=== PATIENT | female | born 1990 | race Caucasian/White ===

== ENCOUNTER 2021-11-16 20:53 | Inpatient (IN) | payer MEDICAID, SELFPAY ==
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
[2021-11-16 21:01] VITALS: BP 117/62; PULSE 71; RESP 18; TEMP 36.6; O2SAT 99; BMI 21.7
[2021-11-16 21:24] LABS: Appearance Urine HAZY; Color Urine YELLOW; Glucose Urine UA NEG (NEG); Leukocyte Esterase Urine NEG (NEG); Nitrite Urine NEG (NEG); Specific Gravity - Urine >= 1.030 (1.005-1.025); Urine Blood NEG (NEG); Urine Ketones NEG (NEG); Urine Protein NEG (NEG-TRACE)
[2021-11-16 21:26] LABS: UPreg QC Valid YES; Urine Pregnancy NEGATIVE (NEGATIVE)
[2021-11-16 21:35] LABS: Basophils Absolute Auto 0.1 X10*3/uL (0.0-0.2); Basophils Percent Auto 0.6 % (0-2); Eosinophils Absolute Auto 0.1 X10*3/uL (0.0-0.4); Eosinophils Percent Auto 0.6 % (0-4); Hemoglobin 11.9 g/dl (12.0-16.0); Imm Gran Abs Auto 0.02 X10*3/uL (0.00-0.03); Imm Gran Pct Auto 0.3 % (0.0-0.4); Lymphocytes Absolute Auto 1.5 X10*3/uL (1.2-4.9); Lymphocytes Percent Auto 19.5 % (20-40); MANUAL DIFF FLAG NO; Mean Corpuscular HGB Conc 33.1 g/dl (31.0-35.0); Mean Corpuscular Hemoglobin 28.7 pg (27.0-33.0); Mean Platelet Volume 10.6 fL (9.4-12.3); Monocytes Absolute Auto 0.7 X10*3/uL (0.1-1.2); Monocytes Percent Auto 8.5 % (2-11); Neutrophils Absolute Auto 5.5 x10*3/uL (2.0-8.3); Neutrophils Percent Auto 70.5 % (45-73); Platelet Count 234 X10*3/uL (160-400); Red Blood Count 4.14 X10*6/uL (4.20-5.50); Red Cell Distribution Width 12.9 % (11.0-16.0); White Blood Count 7.8 X10*3/uL (4.8-10.8)
[2021-11-16 21:38] LABS: COVID-19 Test Negative (Negative)
[2021-11-16 21:47] LABS: Amphetamine Screen Urine Not Detected (Not Detect); Barbiturates, Urine Not Detected (Not Detect); Benzodiazepines Screen Urine Not Detected (Not Detect); Cannabinoid Screen Urine POSITIVE (Not Detect); Cocaine Screen Urine Not Detected (Not Detect); Fentanyl, urine Not Detected (Not Detect); Opiate Screen Urine Not Detected (Not Detect); Phencyclidine Screen Urine Not Detected (Not Detect)
[2021-11-16 21:57] LABS: Ethanol < 10 mg/dL
[2021-11-16 21:59] LABS: Anion Gap 12 (12-20); Blood Urea Nitrogen 11 mg/dL (9-16); Calcium 9.5 mg/dL (8.4-10.2); Carbon Dioxide 27 mmol/L (22-29); Chloride 106 mmol/L (96-108); Creatinine Clr Calc Pharmacy 76.2; Estimated Glomerular Filt Rate > 60; Glucose Random 97 mg/dL (60-115); Potassium 4.1 mmol/L (3.3-5.1); Sodium 141 mmol/L (135-145)
--- NOTE | 2021-11-17 | ECG_ITS ---
Test Reason : MEDICAL CLEARANCE Blood Pressure : / mmHG Vent. Rate : 049 BPM Atrial Rate : 049 BPM P-R Int : 132 ms QRS Dur : 084 ms QT Int : 426 ms P-R-T Axes : 057 067 046 degrees QTc Int : 384 ms Sinus bradycardia Otherwise normal ECG No previous ECGs available Referred By: Apryl Nicholas Electronically Signed By:ÁNGEL OMALLEY
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
[2021-11-17 05:26] VITALS: BP 104/67; PULSE 47; RESP 15; TEMP 36.6; O2SAT 99
--- NOTE | 2021-11-17 06:44 | PC.NURSE ---
Patient slept through the night, no distress observed/reported, currently not on any medication, VSS, Behavior calm, quiet, and pleasant. disposition per [facility] is section 12 inpatient bed search from community, will continue to monitor.
--- NOTE | 2021-11-17 07:00 | PC.NURSE ---
patient appears to remain asleep at present respirations are even and unlabored patient appears in no distress
[2021-11-17 10:07] VITALS: BP 112/73; PULSE 50; RESP 16; TEMP 36.8; O2SAT 100
[2021-11-17 19:00] VITALS: BP 131/86; PULSE 61; TEMP 36.4
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
--- NOTE | 2021-11-18 01:14 | PC.ADMIT ---
Pt declined PRN nicotine replacement therapy and flu vaccine during admission.
[2021-11-18 06:00] VITALS: BP 110/72; PULSE 64; RESP 16; TEMP 36.5; O2SAT 100
[2021-11-18 09:09] LABS: Estimated Average Glucose 108 mg/dL; Hemoglobin A1c % 5.4 %
[2021-11-18 09:26] LABS: Cholesterol 180 mg/dL; HDL Cholesterol 50 mg/dL; LDL Cholesterol Calculated 112 mg/dl; Magnesium 2.3 mg/dL (1.6-2.6); Triglycerides 92 mg/dL
[2021-11-18 09:46] LABS: Free T4 (Free Thyroxine) 1.15 ng/dL (0.71-1.85); Thyroid Stimulating Hormone 1.22 uIU/mL (0.32-4.0)
[2021-11-18 09:56] LABS: Folate 9.8 ng/mL (> or = 4.0); Vitamin B12 439 pg/mL (200-900)
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
[2021-11-18] MEDS: Acetaminophen 325 MG TABLET 650 MG PO ×2 (16:03→21:31)
[2021-11-18 16:18] VITALS: BMI 19.4
[2021-11-18 16:40] VITALS: BP 110/62; PULSE 58; TEMP 36.6
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
[2021-11-19 17:17] VITALS: BP 128/84; PULSE 62; RESP 20; TEMP 36.4; O2SAT 99
[2021-11-20 08:55] VITALS: BP 116/80; PULSE 87; RESP 14; TEMP 36.7; O2SAT 96
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
[2021-11-20 19:03] VITALS: BP 120/86; PULSE 66; RESP 16; TEMP 36.6; O2SAT 97
[2021-11-21 06:00] VITALS: BP 121/79; PULSE 84; RESP 16; TEMP 36.4; O2SAT 100
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
== END 2021-11-21 14:53 | disposition other institution (70) | DRG 750 ==
LOC: HO.ED 11-17 12:17 → HO.PM5 11-17 16:47
PROVIDERS: Physician Assistant; Registered Nurse; Admitting Provider Psychiatry & Neurology Psychiatry; Emergency Provider Internal Medicine; Visit Provider Psychiatry & Neurology Psychiatry
DX: F25.0 Schizoaffective disorder, bipolar type (principal); F17.210 Nicotine dependence, cigarettes, uncomplicated; F43.12 Post-traumatic stress disorder, chronic; Z71.6 Tobacco abuse counseling; Z20.822 Contact with and (suspected) exposure to COVID-19
CPT/HCPCS: 36415; 70450; 70486; 72125; 73060; 80048; 80061; 80307; 81003; 81025; 82077; 82607; 82746; 83036; 83735; 84439; 84443; 85025; 87635; 93005; 99285

== ENCOUNTER 2022-05-01 19:14 | Inpatient (IN) | payer MEDICAID, OTHER, SELFPAY ==
[2022-05-01 19:23] VITALS: BP 137/98; PULSE 118; O2SAT 94
--- NOTE | 2022-05-01 19:27 | PC.NURSE ---
direct to Geovany from EMS stretcher
[2022-05-01 19:30] VITALS: BP 111/79; PULSE 95; RESP 16; TEMP 36.9; O2SAT 96; BMI 22.1
--- NOTE | 2022-05-01 19:49 | MHC.CARE ---
Care Team completed [facility] smart sheet.
[2022-05-01 19:58] LABS: MANUAL DIFF FLAG NO
[2022-05-01 20:00] LABS: Appearance Urine Clear; Color Urine Yellow; Glucose Urine UA Negative (Negative); Leukocyte Esterase Urine Trace (Negative); Nitrite Urine Negative (Negative); PH 5.5 (5.0-9.0); Specific Gravity - Urine <= 1.005 (1.005-1.025); UMIC TRIGGER UA YES; Urine Blood Negative (Negative); Urine Ketones Negative (Negative); Urine Protein Negative (Neg-Trace)
[2022-05-01 20:00] LABS: Basophils Absolute Auto 0.1 X10*3/uL (0.0-0.2); Basophils Percent Auto 0.6 % (0-2); Eosinophils Absolute Auto 0.2 X10*3/uL (0.0-0.4); Eosinophils Percent Auto 1.9 % (0-4); Hematocrit 41.4 % (37.0-47.0); Hemoglobin 14.3 g/dl (12.0-16.0); Imm Gran Abs Auto 0.03 X10*3/uL (0.00-0.03); Imm Gran Pct Auto 0.3 % (0.0-0.4); Lymphocytes Percent Auto 19.2 % (20-40); Mean Corpuscular HGB Conc 34.5 g/dl (31.0-35.0); Mean Corpuscular Hemoglobin 28.9 pg (27.0-33.0); Mean Corpuscular Volume 83.8 fL (80.0-98.0); Mean Platelet Volume 9.8 fL (9.4-12.3); Monocytes Absolute Auto 0.8 X10*3/uL (0.1-1.2); Monocytes Percent Auto 7.6 % (2-11); Neutrophils Absolute Auto 7.4 x10*3/uL (2.0-8.3); Neutrophils Percent Auto 70.4 % (45-73); Platelet Count 278 X10*3/uL (160-400); Red Blood Count 4.94 X10*6/uL (4.20-5.50); Red Cell Distribution Width 13.4 % (11.0-16.0); White Blood Count 10.5 X10*3/uL (4.8-10.8)
[2022-05-01 20:03] LABS: UPreg QC Valid YES; Urine Pregnancy NEGATIVE (NEGATIVE)
[2022-05-01 20:05] LABS: Bacteria Urine 3+ (None Seen); Hyaline Casts Urine 0-2 /LPF (0-2); RBC Urine 0-2 /HPF (0-2); WBC Urine 0-5 /HPF (0-5)
[2022-05-01 20:11] LABS: Amphetamine Screen Urine Not Detected (Not Detect); Barbiturates, Urine Not Detected (Not Detect); Benzodiazepines Screen Urine Not Detected (Not Detect); Cannabinoid Screen Urine POSITIVE (Not Detect); Cocaine Screen Urine Not Detected (Not Detect); Fentanyl, urine Not Detected (Not Detect); Opiate Screen Urine Not Detected (Not Detect); Phencyclidine Screen Urine Not Detected (Not Detect)
[2022-05-01 20:13] LABS: COVID-19 Test Negative (Negative); IDNOW Serial# 55D5AD1C
[2022-05-01 20:16] LABS: Ethanol 107 mg/dL
[2022-05-01 20:23] LABS: Alanine Aminotransferase 23 U/L (0-31); Alkaline Phosphatase 59 U/L (39-117); Anion Gap 17 (12-20); Aspartate Amino Transferase 32 U/L (5-31); Bilirubin Total < 0.2 mg/dL (0.0-1.0); Blood Urea Nitrogen 14 mg/dL (9-16); Calcium 9.9 mg/dL (8.4-10.2); Carbon Dioxide 24 mmol/L (22-29); Chloride 106 mmol/L (96-108); Creatinine Clr Calc Pharmacy 66.9; Estimated Glomerular Filt Rate > 60; Glucose Random 97 mg/dL (60-115); Potassium 4.8 mmol/L (3.3-5.1); Sodium 142 mmol/L (135-145); Total Protein 8.1 g/dL (6.5-8.0)
[2022-05-02 00:06] VITALS: BP 113/52; PULSE 78; RESP 17; TEMP 36.2; O2SAT 95
--- NOTE | 2022-05-02 00:59 | ED.PSYCH ---
HPI - Psych General Chief Complaint: Psychiatric Symptoms Stated Complaint: SEC 12 CRISIS Time Seen by Provider: 05/01/22 19:29 Source: patient and EMS Mode of arrival: EMS Limitations: other History of Present Illness HPI Narrative: Patient comes to the emergency room complaining of hallucinations. Patient states that Del the evil clown tila's her. Patient ran into her neighbor's yd screaming. Seems that patient has been seen by [facility] 3 times today. Each time, patient has worsening symptoms. Patient is on a Section 12, denies alcohol use. Patient states that she is in a lot of emotional pain. Patient states that she has not had taking any medications. Reviewing patient's notes, patient was discharged on November 21, per her request, she was not started on medications Related Data Allergies Allergy/AdvReac Type Severity Reaction Status Date / Time No Known Allergies Allergy Verified 05/01/22 19:35 Review of Systems Review of Systems: Constitutional : No Weight loss, No Fever, No Chills, No Night Sweats, No Fatigue, No Malaise ENT/Mouth : No Hearing loss, No Ear Pain, No Nasal Congestion, No Sinus Pain, No Hoarseness, No sore throat, No Rhinorrhea, No Swallowing Difficulty Eyes: No Eye Pain, No Swelling, No Redness, No Foreign Body, No Discharge, No Vision Changes Cardiovascular : No Chest Pain, No SOB, No Dyspnea on Exertion, No Orthopnea, No Edema, No Palpitations Respiratory : No Cough, No Sputum, No Wheezing, No Smoke Exposure, No Dyspnea Gastrointestinal : No Nausea, No Vomiting, No Diarrhea, No Constipation, No abdominal Pain, No Hematochezia, No Melena Genitourinary : no irregular bleeding, No Dysuria, No Urinary Frequency, No Hematuria, No Urinary Incontinence, No Urgency, No Flank Pain, No Urinary Flow Changes, No Hesitancy Musculoskeletal : No joint pain, No Myalgias, No Joint Swelling Skin : No Skin Lesions, No rash Neuro : No Weakness, No Numbness, No Paresthesias, No Loss of Consciousness, No Dizziness, No Headache Psych : complaining of anxiety, severe fear, No Depression, No SI/HI/AH/VH, No Social Issues, Heme/Lymph: No Bruising, No Bleeding,No Lymphadenopathy Endocrine : No Polyuria, No Polydipsia, No Temperature Intolerance [facility] Past Medical History Medical History Chronic post-traumatic stress disorder (PTSD) Schizoaffective disorder, bipolar type Social History Social History Household Members: Significant Other Housing: House Do you presently have visiting nurse or other home services: No Patient Tobacco Use Status: Current someday Tobacco user Tobacco use type: Cigarette Cigarette Packs Per Day: 0.5 Cigarettes Per Day: 10.0 Years Smoked: 9 e-Cigarette/Vaping Use: Never Used Second Hand Smoke Exposure: Yes Substance Use Type: Marijuana Advance Directives: No Advance Directives Information Provided: Yes service: No Sexual orientation: Straight/Heterosexual Physical Exam Vital Signs: Vital Signs: Last Vital Signs Temp 97.2 F 05/02/22 00:06 Pulse 78 05/02/22 00:06 Resp 17 05/02/22 00:06 BP 113/52 L 05/02/22 00:06 Pulse Ox 95 05/02/22 00:06 O2 Del Method 05/02/22 00:06 BMI result Body Mass Index 22.1 Const: Other: Appearance: Alert. Oriented X3. No acute distress. Eyes: Pupils equal, round and reactive to light. ENT: Pharynx normal. Neck: Normal inspection. Neck supple. No lymph nodes noted. No crepitus CVS: Normal heart rate and rhythm. Pulses normal. Normal S1 and S2 Respiratory: No respiratory distress. Breath sounds normal. No Wheezing. No rales Abdomen: Soft and nontender. No rigidity. No distention. Skin: Skin warm and dry. Normal skin color. Normal skin turgor. Extremities: No lower extremity edema. No Lacerations. No Rash Neuro: Oriented X 3. No motor deficit. No sensory deficit. Moving all extremities. No slurred speech. CN 2 through 12 grossly intact Psych: calm, cooperative, seems paranoid Course Course Course Narrative: Patient is on a Section 12, behavioral health network consult pending. Physician observation started at 01:10 [facility] - Psych Lab Data Result diagrams: 05/01/22 19:50 05/01/22 19:50 Labs: Lab Results 05/01/22 05/01/22 05/01/22 Range/Units 19:49 19:49 19:49 WBC (4.8-10.8) X10*3/uL RBC (4.20-5.50) X10*6/uL Hgb (12.0-16.0) g/dl Hct (37.0-47.0) % MCV (80.0-98.0) fL MCH (27.0-33.0) pg MCHC (31.0-35.0) g/dl RDW (11.0-16.0) % Plt Count (160-400) X10*3/uL MPV (9.4-12.3) fL Immature Gran % (Auto) (0.0-0.4) % Neut % (Auto) (45-73) % Lymph % (Auto) (20-40) % [place] % (Auto) (2-11) % Eos % (Auto) (0-4) % Baso % (Auto) (0-2) % Lymph # (Auto) (1.2-4.9) X10*3/uL [place] # (Auto) (0.1-1.2) X10*3/uL Eos # (Auto) (0.0-0.4) X10*3/uL Baso # (Auto) (0.0-0.2) X10*3/uL Abs Immat Gran (auto) (0.00-0.03) X10*3/uL Absolute Neuts (auto) (2.0-8.3) x10*3/uL Absolute Nucleated RBC (0.0-0.012) X10*3/uL Nucleated RBC % (auto) (0.0-0.2) /100WBC Sodium (135-145) mmol/L Potassium (3.3-5.1) mmol/L Chloride (96-108) mmol/L Carbon Dioxide (22-29) mmol/L Anion Gap (12-20) BUN (9-16) mg/dL Creatinine (0.5-1.4) mg/dL Estim Creat Clear Calc Estimated GFR Random Glucose (60-115) mg/dL Calcium (8.4-10.2) mg/dL Total Bilirubin (0.0-1.0) mg/dL AST (5-31) U/L ALT (0-31) U/L Alkaline Phosphatase (39-117) U/L Total Protein (6.5-8.0) g/dL Albumin (3.5-5.0) g/dL Urine Color Yellow Urine Appearance Clear Urine pH 5.5 (5.0-9.0) Ur Specific Daniel <= 1.005 (1.005-1.025) Urine Protein Negative (Neg-Trace) mg/dL Urine Glucose (UA) Negative (Negative) mg/dL Urine Ketones Negative (Negative) mg/dL Urine Blood Negative (Negative) Urine Nitrite Negative (Negative) Ur Leukocyte Esterase Trace H (Negative) Urine RBC 0-2 (0-2) /HPF Urine WBC 0-5 (0-5) /HPF Ur Squamous Epith Cells 11-20 (0-2) /HPF Urine Bacteria 3+ (None Seen) Hyaline Casts 0-2 (0-2) /LPF Urine Test (NEGATIVE) Urine Opiates Screen Not Detected (Not Detect) Urine Fentanyl Screen Not Detected (Not Detect) Ur Barbiturates Screen Not Detected (Not Detect) Ur Phencyclidine Scrn Not Detected (Not Detect) Ur Amphetamines Screen Not Detected (Not Detect) U Benzodiazepines Scrn Not Detected (Not Detect) Urine Cocaine Screen Not Detected (Not Detect) U Marijuana (THC) Screen POSITIVE H (Not Detect) Ethyl Alcohol mg/dL COVID-19 (JULIETA) Negative (Negative) COVID-19 Clin Com See Note 05/01/22 05/01/22 05/01/22 Range/Units 19:49 19:50 19:50 WBC 10.5 (4.8-10.8) X10*3/uL RBC 4.94 (4.20-5.50) X10*6/uL Hgb 14.3 D (12.0-16.0) g/dl Hct 41.4 (37.0-47.0) % MCV 83.8 (80.0-98.0) fL MCH 28.9 (27.0-33.0) pg MCHC 34.5 (31.0-35.0) g/dl RDW 13.4 (11.0-16.0) % Plt Count 278 (160-400) X10*3/uL MPV 9.8 (9.4-12.3) fL Immature Gran % (Auto) 0.3 (0.0-0.4) % Neut % (Auto) 70.4 (45-73) % Lymph % (Auto) 19.2 L (20-40) % [place] % (Auto) 7.6 (2-11) % Eos % (Auto) 1.9 (0-4) % Baso % (Auto) 0.6 (0-2) % Lymph # (Auto) 2.0 (1.2-4.9) X10*3/uL [place] # (Auto) 0.8 (0.1-1.2) X10*3/uL Eos # (Auto) 0.2 (0.0-0.4) X10*3/uL Baso # (Auto) 0.1 (0.0-0.2) X10*3/uL Abs Immat Gran (auto) 0.03 (0.00-0.03) X10*3/uL Absolute Neuts (auto) 7.4 (2.0-8.3) x10*3/uL Absolute Nucleated RBC 0.000 (0.0-0.012) X10*3/uL Nucleated RBC % (auto) 0.0 (0.0-0.2) /100WBC Sodium 142 (135-145) mmol/L Potassium 4.8 (3.3-5.1) mmol/L Chloride 106 (96-108) mmol/L Carbon Dioxide 24 (22-29) mmol/L Anion Gap 17 (12-20) BUN 14 (9-16) mg/dL Creatinine 0.91 (0.5-1.4) mg/dL Estim Creat Clear Calc 66.9 Estimated GFR > 60 Random Glucose 97 (60-115) mg/dL Calcium 9.9 (8.4-10.2) mg/dL Total Bilirubin < 0.2 (0.0-1.0) mg/dL AST 32 H (5-31) U/L ALT 23 (0-31) U/L Alkaline Phosphatase 59 (39-117) U/L Total Protein 8.1 H (6.5-8.0) g/dL Albumin 5.0 (3.5-5.0) g/dL Urine Color Urine Appearance Urine pH (5.0-9.0) Ur Specific Daniel (1.005-1.025) Urine Protein (Neg-Trace) mg/dL Urine Glucose (UA) (Negative) mg/dL Urine Ketones (Negative) mg/dL Urine Blood (Negative) Urine Nitrite (Negative) Ur Leukocyte Esterase (Negative) Urine RBC (0-2) /HPF Urine WBC (0-5) /HPF Ur Squamous Epith Cells (0-2) /HPF Urine Bacteria (None Seen) Hyaline Casts (0-2) /LPF Urine Test NEGATIVE (NEGATIVE) Urine Opiates Screen (Not Detect) Urine Fentanyl Screen (Not Detect) Ur Barbiturates Screen (Not Detect) Ur Phencyclidine Scrn (Not Detect) Ur Amphetamines Screen (Not Detect) U Benzodiazepines Scrn (Not Detect) Urine Cocaine Screen (Not Detect) U Marijuana (THC) Screen (Not Detect) Ethyl Alcohol mg/dL COVID-19 (JULIETA) (Negative) COVID-19 Clin Com 05/01/22 Range/Units 19:50 WBC (4.8-10.8) X10*3/uL RBC (4.20-5.50) X10*6/uL Hgb (12.0-16.0) g/dl Hct (37.0-47.0) % MCV (80.0-98.0) fL MCH (27.0-33.0) pg MCHC (31.0-35.0) g/dl RDW (11.0-16.0) % Plt Count (160-400) X10*3/uL MPV (9.4-12.3) fL Immature Gran % (Auto) (0.0-0.4) % Neut % (Auto) (45-73) % Lymph % (Auto) (20-40) % [place] % (Auto) (2-11) % Eos % (Auto) (0-4) % Baso % (Auto) (0-2) % Lymph # (Auto) (1.2-4.9) X10*3/uL [place] # (Auto) (0.1-1.2) X10*3/uL Eos # (Auto) (0.0-0.4) X10*3/uL Baso # (Auto) (0.0-0.2) X10*3/uL Abs Immat Gran (auto) (0.00-0.03) X10*3/uL Absolute Neuts (auto) (2.0-8.3) x10*3/uL Absolute Nucleated RBC (0.0-0.012) X10*3/uL Nucleated RBC % (auto) (0.0-0.2) /100WBC Sodium (135-145) mmol/L Potassium (3.3-5.1) mmol/L Chloride (96-108) mmol/L Carbon Dioxide (22-29) mmol/L Anion Gap (12-20) BUN (9-16) mg/dL Creatinine (0.5-1.4) mg/dL Estim Creat Clear Calc Estimated GFR Random Glucose (60-115) mg/dL Calcium (8.4-10.2) mg/dL Total Bilirubin (0.0-1.0) mg/dL AST (5-31) U/L ALT (0-31) U/L Alkaline Phosphatase (39-117) U/L Total Protein (6.5-8.0) g/dL Albumin (3.5-5.0) g/dL Urine Color Urine Appearance Urine pH (5.0-9.0) Ur Specific Daniel (1.005-1.025) Urine Protein (Neg-Trace) mg/dL Urine Glucose (UA) (Negative) mg/dL Urine Ketones (Negative) mg/dL Urine Blood (Negative) Urine Nitrite (Negative) Ur Leukocyte Esterase (Negative) Urine RBC (0-2) /HPF Urine WBC (0-5) /HPF Ur Squamous Epith Cells (0-2) /HPF Urine Bacteria (None Seen) Hyaline Casts (0-2) /LPF Urine Test (NEGATIVE) Urine Opiates Screen (Not Detect) Urine Fentanyl Screen (Not Detect) Ur Barbiturates Screen (Not Detect) Ur Phencyclidine Scrn (Not Detect) Ur Amphetamines Screen (Not Detect) U Benzodiazepines Scrn (Not Detect) Urine Cocaine Screen (Not Detect) U Marijuana (THC) Screen (Not Detect) Ethyl Alcohol 107 mg/dL COVID-19 (JULIETA) (Negative) COVID-19 Clin Com Discharge Plan Discharge Clinical Impression: Schizoaffective disorder, bipolar type Patient Disposition: Still a Patient
--- NOTE | 2022-05-02 06:21 | PC.NURSE ---
Patient slept through the night, no distress observed/reported, patient engaged well with [facility] clinician, disposition per [facility] is section 12 inpatient bed search, med rec completed/currently not on any medication, patient was diagnose with Schizoaffective d/o bipolar type by [facility] [place] [facility] psych provider but not any medication at this time, behavior non concerning at this time, will continue to monitor.
--- NOTE | 2022-05-02 07:13 | PC.NURSE ---
patient appears to remain asleep at present respirations are even and unlabored patient appears in no distress
[2022-05-02 09:34] VITALS: BP 113/82; PULSE 92; TEMP 36.9; O2SAT 97
--- NOTE | 2022-05-02 12:02 | PC.NURSE ---
pt a&o, calm, watching tv, denies pain/discomfort,will continue to monitor.
--- NOTE | 2022-05-02 16:30 | PC.NURSE ---
pt expressed concern regarding wellbeing of her dog, pt believes that dog was picked up from her residence by Natanael ROBERTS/animal control. contacted Natanael ROBERTS on behalf of pt to confirm, per Natanael ROBERTS dog is being taken care of by animal control at dog [employer] and is eating and doing well. pt notified.
--- NOTE | 2022-05-02 17:55 | PC.NURSE ---
pt a&ox3, tearful, but calm and cooperative - pt requested that mother be removed from contact list and that she not be notified of any information regarding pt care, registration notified. no new orders at this time.
--- NOTE | 2022-05-02 18:15 | PC.NURSE ---
pt asked when [facility] will be coming for next visit - spoke wali FLORES, plan is for someone to come out during third shift.
[2022-05-02 18:16] VITALS: BP 124/80; PULSE 54; RESP 17; TEMP 36.9; O2SAT 94
--- NOTE | 2022-05-03 06:08 | PC.NURSE ---
Patient sleeping comfortably in her room, no distress noted. Will continue to monitor.
[2022-05-03 06:20] VITALS: BP 112/77; PULSE 65; RESP 17; TEMP 36.4; O2SAT 97
--- NOTE | 2022-05-03 08:22 | PC.NURSE ---
pt awake, alert and oriented. Pt showered, ate breakfast. Bed search in process. No distress noted at this time. Will continue to monitor.
[2022-05-03 12:06] LABS: COVID-19 Test Negative (Negative); IDNOW Serial# 55D5AD1C
[2022-05-03 17:05] VITALS: BP 113/67; PULSE 67; TEMP 36.8; O2SAT 99
--- NOTE | 2022-05-03 17:14 | PC.ADMIT ---
pt is a 31 year old female who came into [facility] [place] [facility] by EMS due to running into her neighbor's yard and yelling that a clown is chasing her and delusions. pts has a few inpatient psych stays including one on [facility] in October 2021. during admission, pt was talkative and bright about past. pt is interested in signing a 3 day. pt reports no medical problems. pt has no paranois, AH, VH, or SI at time of admission. pt wants to get to better and find a different place to live when she leaves the hospital
--- NOTE | 2022-05-03 17:42 | PC.NURSE ---
pt has flu shot. nurse threw away vial, and lot number and expiration date were input wrong
--- NOTE | 2022-05-03 19:48 | PC.NURSE ---
pt signed a 3 day on 05/03/22, will be up on 05/07
[2022-05-04 06:00] VITALS: BP 111/81; PULSE 74; RESP 16; TEMP 36.4; O2SAT 98
[2022-05-04 08:36] LABS: Estimated Average Glucose 108 mg/dL; Hemoglobin A1c % 5.4 %
[2022-05-04 09:05] LABS: Cholesterol 187 mg/dL; HDL Cholesterol 58 mg/dL; LDL Cholesterol Calculated 114 mg/dl; Triglycerides 79 mg/dL
[2022-05-04 09:29] LABS: Free T4 (Free Thyroxine) 1.19 ng/dL (0.71-1.85); Thyroid Stimulating Hormone 1.43 uIU/mL (0.32-4.0)
[2022-05-04 09:40] LABS: Folate 14.3 ng/mL (> or = 4.0); Vitamin B12 516 pg/mL (200-900)
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
[2022-05-04] MEDS: risperiDONE 0.5 MG TABLET PO (14:00)
[2022-05-04 18:00] VITALS: BP 137/80; PULSE 97; RESP 20; TEMP 37; O2SAT 96
[2022-05-04] MEDS: OLANZapine ODT 10 MG TAB.RAPDIS TRANSLINGU (19:49)
[2022-05-05 06:00] VITALS: BP 105/71; PULSE 65; RESP 14; TEMP 36.4; O2SAT 100
[2022-05-05] MEDS: OLANZapine ODT 10 MG TAB.RAPDIS TRANSLINGU ×2 (08:47→21:12)
[2022-05-05] MEDS: risperiDONE 0.5 MG TABLET PO (08:47)
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
[2022-05-05 21:10] VITALS: BP 131/82; PULSE 82; TEMP 36.6
[2022-05-05] MEDS: risperiDONE 1 MG TABLET PO (21:12)
[2022-05-06 06:00] VITALS: BP 109/66; PULSE 75; RESP 17; TEMP 37.1; O2SAT 99
[2022-05-06] MEDS: OLANZapine ODT 10 MG TAB.RAPDIS TRANSLINGU (08:56)
[2022-05-06] MEDS: risperiDONE 0.5 MG TABLET PO (08:56)
--- NOTE | 2022-05-06 16:59 | P.PNPSI_ITS ---
Subjective Subjective Date of Service: 05/06/22 Reason For Visit: PTSD, Schizoaffective Disorder, Bipolar type Interim History: Patient remains calm, in a overall better mood, no SI, no HI no AVH. No problems with medication. Patient remains without expressing any delusional paranoid thinking. She continues to discuss how she is feeling motivated to get her life back on track and put this chapter behind her, which includes upsetting break-up with her boyfriend and upsetting living experience. Patient says she so much wants to get back to working full-time which she finds therapeutic and helps her remain her most stable. 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 She continues to agree with the benefits of medication and says she will stay on them. Hand Funnel Coater discussed medication regimen and that she was already started on Zyprexa which she has been taking, prior to starting Risperdal. Patient agreed to discontinue Risperdal and just remain on Zyprexa which is the most likely cause for her increased sense of calm and stability. Mental Status Exam Mental Status Exam Narrative: Pt is alert and oriented; behavior is cooperative, calm; dressed in casual attire wearing wrap around her head; adequate hygiene; mood is described as ok and affect congruent, calmer; eye contact appropriate; Speech is regular rate, volume and prosody; no psychomotor agitation/retardation present; thought process is goal directed and circumstantial; Thought content is processing her struggles; no paranoid thoughts expressed; denies any SI/HI. She denies AVH.? Home lucas insight and judgment are impaired but improved. Diagnostics Vital Signs (24Hr): Vital Signs - 24 hr 05/05/22 21:10 05/06/22 06:00 Temperature 97.8 F 98.7 F Pulse Rate 82 75 Respiratory Rate 17 Blood Pressure 131/82 109/66 Pulse Oximetry 99 BMI result Body Mass Index 22.1 Labs Results: 05/01/22 19:50 05/01/22 19:50 Medications Medications Current Medications Acetaminophen (Acetaminophen 325 Mg Tablet) 650 mg PO Q6H PRN PRN Reason: Headache/Pain Mild Scale (1-3) Al Hydroxide/Mg Hydroxide (Magnesium Hydrox/Alum Hydrox 30 Ml Oral.Susp) 30 ml PO Q6H PRN PRN Reason: Heartburn/Nausea Hydroxyzine HCl (Hydroxyzine Hcl 25 Mg Tablet) 25 mg PO Q6H PRN PRN Reason: Anxiety Magnesium Hydroxide (Milk Of Magnesia 30 Ml Oral.Susp) 30 ml PO DAILY PRN PRN Reason: Constipation Olanzapine (Olanzapine Odt 10 Mg Tab.Rapdis) 10 mg TRANSLINGU BEDTIME PJ Trazodone HCl (Trazodone Hcl 50 Mg Tablet) 50 mg PO BEDTIME PRN PRN Reason: Insomnia Allergies Allergies Allergy/AdvReac Type Severity Reaction Status Date / Time No Known Allergies Allergy Verified 05/01/22 19:35 Assessment & Plan Assessment & Plan (1) Schizoaffective disorder, bipolar type: Status: Acute Code(s): F25.0 - Schizoaffective disorder, bipolar type (2) Chronic post-traumatic stress disorder (PTSD): Status: Acute Code(s): F43.12 - Post-traumatic stress disorder, chronic Plan Patient is a 31-year-old female with history of Schizoaffective disorder, bipola r type with paranoid delusions, PtSD, who presents for disorganized, aggressive behavior in the community. Briefly admitted to 10/2021 and refused meds; otherwise, last psych admission about 10 years prior.? -patient has a history of intermittent psychotic illness; however up until this past year pt has mostly been able to remain stable in the community on her own, even off medications (per collateral provided by her sister Megan). -what ever got triggered that led to her last admission October 2021, has continued and even worsened and according to report, the police have been called to her house 5 times since her last discharge for aggressive and threatening behaviors towards neighbors and for destruction of property.? Patient clearly has paranoid and delusional thinking leading to such behaviors.? She denies drinking alcohol when clearly she was, revealing her unreliability and report ing.? Patient is also on the verge of eviction (according to her and crisis it seems) and homelessness will only further exacerbate her stress and symptoms.? At this time patient is to remain on the unit for treatment.? In a tremendously brave decision, patient agreed that she does need help with her emotionality and agreed to start Risperdal. 05/05 patient more calm, no side effects. Patient expressing gratitude for help she is receiving on the unit and remains open to the benefits of medication. Patient also open to getting connected with therapy group and medication provider, all very big steps for her. Discussed patient with team who has worked with her before. The fact that patient has been able to remain in the community, functioning on her own, with a job, for years without any medication makes it hopeful that current medication dose could prove quite stabilizing. She is willing to remain on medication after discharge. Discussed patient's plans for after discharge and she said she is going to stay at her father's for while. She wants to get out of this house as soon as possible and also has plans to potentially move in with her cousin; she is also looking into job op portunities that provide room and board 05/06 remains calm, better mood, no expressed delusions or paranoid thinking. Discussed medications and patient will stay on Zyprexa and switch it to bedtime; will DC Risperdal. Patient said she would like to probably discharge on Wednesday; ghost writer offered her to stay longer and she said she is starting to look forward to getting back to her life, looking for a job and moving out of her current living situation. While past 5 months have been marked by dysregulated behavior, patient has demonstrated improved judgment and insight by being willing to take medications and receive help. On the unit she has remained in good behavioral and impulse control and has been completely appropriate with peers and staff. She has also been forthcoming and engaged in 1 on 1 sessions. Patient continues to plan on getting out of this current living situation as erasmo n as possible which will significantly reduce stress. Patient has stabilized. Will continue to monitor but patient is not in imminent risk of harm to self or others. PLAN: CV: 3 day notice Q 15 minute checks Zyprexa 20mg qhs DC risperdal Recent Hx: Hand Funnel Coater reviewed other recent history reported in crisis note with patient. 11/24/21 Crisis note?[place] police (assessed) asked BHN and to see patient at the house as she was breaking things in the home 01/29/22 and 01/31/2022? Crisis report [facility] and [place] police called to assess patient who was reportedly intoxicated, threatening others and said she was lady got go wearing makeup. Patient report: Patient denies this 02/14/2022? Crisis report: Natanael miller came to the property for behavioral outbursts; 8 windows broken in the house and patient unwilling to engage. BHN also present and reports patient said she was triggered by her PTSD that day; she had been verbally aggressive towards staff as well Patient report:? Patient admits that there were broken windows in her house however she said she did not break any of the.? She said that 1 of the windows has a broken weight on it and that it just shot up quickly on its own, breaking on its own. 03/28/22 Crisis report?that Natanael miller came to the house after neighbors called 911 saying patient was destroying things in the house with a hammer. Patient report:? Patient says that she was feeling threatened and that nobody would listen; felt emotionally triggered and had a hammer and was making dents in the door...a few holes in the quispe. ? She explains when she feels out of control she sometimes gets out of control patient said she talked to Rony Fonseca and she agreed to stop damaging the house and instead take a walk when she is feeling frustrated. 04/10/2022 Crisis note:? Natanael miller called to the house for behavioral issues; no details provided I spent minutes with the patient and/or on the patient floor today, greater than?50% of which was spent counseling/coordinating care. Patient educated on: diagnosis and medication risk/benefits Informed Consent: understands Reason for contiued inpatient stay Substantial Risk for: stable for discharge
[2022-05-06 18:00] VITALS: BP 122/82; PULSE 69; RESP 16; TEMP 36.5; O2SAT 99
[2022-05-07] MEDS: Acetaminophen 325 MG TABLET 650 MG PO (08:54)
[2022-05-07 08:59] VITALS: BP 108/71; PULSE 114; RESP 18; TEMP 36.5; O2SAT 95
--- NOTE | 2022-05-07 10:39 | HO.PSYCHPN ---
Subjective Subjective Date of Service: 05/07/22 Reason For Visit: PTSD, Schizoaffective Disorder, Bipolar type Interim History: Patient in a good mood. She feels that she is doing much better and again expresses gratitude for the admission and for help received. Asbestos Cement Sheet Supervisor reviewed risks/side effects of Zyprexa which patient ask questions about and understood and agrees to continue with. Patient shared how at 1st she felt like being on the unit was a trap since the doors are locked; however she has come to see that there are traps in the mind that are debilitating. She shared that she feels like she has been in a trap of her own mind... a labrynth but is now feeling calm and clear minded enough to find her way out. Patient shared she reflected on the past 5 months and has felt like it is hard to believe all that happened and that it does not even seem like her. She also shared that she had a good conversation with her mother which is a rare event as they seem to find each other triggering. Patient continues to plan to very likely go stay with her father and look for work around there. She says she plans to continue taking the medication on discharge. Mental Status Exam Mental Status Exam Narrative: Pt is alert and oriented; behavior is cooperative, calm; dressed in casual attire, no longer wearing wrap around her head; adequate hygiene; mood is described as good and affect congruent, calm. bright; eye contact appropriate; Speech is regular rate, volume and prosody; no psychomotor agitation/retardation present; thought process is goal directed and circumstantial; Thought content is processing her struggles; no paranoid thoughts expressed; denies any SI/HI. She denies AVH.? Patients insight and judgment are fair. Diagnostics Vital Signs (24Hr): Vital Signs - 24 hr 05/06/22 18:00 05/07/22 08:59 Temperature 97.7 F 97.7 F Pulse Rate 69 114 H Respiratory Rate 16 18 Blood Pressure 122/82 108/71 Pulse Oximetry 99 95 Oxygen Delivery Method Room Air Room Air BMI result Body Mass Index 22.1 Labs Results: 05/01/22 19:50 05/01/22 19:50 Medications Medications Current Medications Acetaminophen (Acetaminophen 325 Mg Tablet) 650 mg PO Q6H PRN PRN Reason: Headache/Pain Mild Scale (1-3) Last Admin: 05/07/22 08:54 Dose: 650 mg Al Hydroxide/Mg Hydroxide (Magnesium Hydrox/Alum Hydrox 30 Ml Oral.Susp) 30 ml PO Q6H PRN PRN Reason: Heartburn/Nausea Hydroxyzine HCl (Hydroxyzine Hcl 25 Mg Tablet) 25 mg PO Q6H PRN PRN Reason: Anxiety Magnesium Hydroxide (Milk Of Magnesia 30 Ml Oral.Susp) 30 ml PO DAILY PRN PRN Reason: Constipation Olanzapine (Olanzapine Odt 10 Mg Tab.Rapdis) 20 mg TRANSLINGU BEDTIME PJ Trazodone HCl (Trazodone Hcl 50 Mg Tablet) 50 mg PO BEDTIME PRN PRN Reason: Insomnia Allergies Allergies Allergy/AdvReac Type Severity Reaction Status Date / Time No Known Allergies Allergy Verified 05/01/22 19:35 Assessment & Plan Assessment & Plan (1) Schizoaffective disorder, bipolar type: Status: Acute Code(s): F25.0 - Schizoaffective disorder, bipolar type (2) Chronic post-traumatic stress disorder (PTSD): Status: Acute Code(s): F43.12 - Post-traumatic stress disorder, chronic Plan Patient is a 31-year-old female with history of Schizoaffective disorder, bipolar type with paranoid delusions, PtSD, who presents for disorganized, aggressive behavior in the community. Briefly admitted to 10/2021 and refused meds; otherwise, last psych admission about 10 years prior.? -patient has a history of intermittent psychotic illness; however up until this past year pt has mostly been able to remain stable in the community on her own, even off medications (per collateral provided by her sister Megan). -what ever got triggered that led to her last admission October 2021, has continued and even worsened and according to report, the police have been called to her house 5 times since her last discharge for aggressive and threatening behaviors towards neighbors and for destruction of property.? Patient clearly has paranoid and delusional thinking leading to such behaviors.? She denies drinking alcohol when clearly she was, revealing her unreliability and reporting.? Patient is also on the verge of eviction (according to her and crisis it seems) and homelessness will only further exacerbate her stress and symptoms.? At this time patient is to remain on the unit for treatment.? In a tremendously brave decision, patient agreed that she does need help with her emotionality and agreed to start Risperdal. 05/05 patient more calm, no side effects. Patient expressing gratitude for help she is receiving on the unit and remains open to the benefits of medication. Patient also open to getting connected with therapy group and medication provider, all very big steps for her. Discussed patient with team who has worked with her before. The fact that patient has been able to remain in the community, functioning on her own, with a job, for years without any medication makes it hopeful that current medication dose could prove quite stabilizing. She is willing to remain on medication after discharge. Discussed patient's plans for after discharge and she said she is going to stay at her father's for while. She wants to get out of this house as soon as possible and also has plans to potentially move in with her cousin; she is also looking into job opportunities that provide room and board 05/06 remains calm, better mood, no expressed delusions or paranoid thinking. Discussed medications and patient will stay on Zyprexa and switch it to bedtime; will DC Risperdal. Patient said she would like to probably discharge on Wednesday; junior underwriter offered her to stay longer and she said she is starting to look forward to getting back to her life, looking for a job and moving out of her current living situation. While past 5 months have been marked by dysregulated behavior, patient has demonstrated improved judgment and insight by being willing to take medications and receive help. On the unit she has remained in good behavioral and impulse control and has been completely appropriate with peers and staff. She has also been forthcoming and engaged in 1 on 1 sessions. Patient continues to plan on getting out of this current living situation as soon as possible which will significantly reduce stress. Patient has stabilized. Will continue to monitor but patient is not in imminent risk of harm to self or others. 05/07 patient remains in good mood and reports she is feeling much more clear minded back to her regular self; upon reflection she can hardly believe some of the things that happened over the past 5 months and is grateful to be moving on, feeling much more able to process and think clearly with medication. Patient would like to discharge tomorrow and her 3 days due. She plans to continue taking medications. She also plans to get out of her current housing situation and be done with this chapter in her life. Patient is not in imminent risk for harm to self or others and her request for discharge honored. 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 11/24/21 Crisis note?[place] police (assessed) asked BHN and to see patient at the house as she was breaking things in the home 01/29/22 and 01/31/2022? Crisis report N and [place] police called to assess patient who was reportedly intoxicated, threatening others and said she was lady got go wearing makeup. Patient report: Patient denies this 02/14/2022? Crisis report: [place] police came to the property for behavioral outbursts; 8 windows broken in the house and patient unwilling to engage. BHN also present and reports patient said she was triggered by her PTSD that day; she had been verbally aggressive towards staff as well Patient report:? Patient admits that there were broken windows in her house however she said she did not break any of the.? She said that 1 of the windows has a broken weight on it and that it just shot up quickly on its own, breaking on its own. 03/28/22 Crisis report?that [place] police came to the house after neighbors called 911 saying patient was destroying things in the house with a hammer. Patient report:? Patient says that she was feeling threatened and that nobody would listen; felt emotionally triggered and had a hammer and was making dents in the door...a few holes in the quispe. ? She explains when she feels out of control she sometimes gets out of control patient said she talked to Rony Fonseca and she agreed to stop damaging the house and instead take a walk when she is feeling frustrated. 04/10/2022 Crisis note:? [place] police called to the house for behavioral issues; no details provided I spent minutes with the patient and/or on the patient floor today, greater than?50% of which was spent counseling/coordinating care. Reason for contiued inpatient stay Substantial Risk for: stable for discharge
[2022-05-07 16:15] VITALS: BP 130/64; PULSE 94; TEMP 36.3
[2022-05-07] MEDS: OLANZapine 10 MG TABLET 20 MG PO (22:18)
[2022-05-08 06:00] VITALS: BP 104/57; PULSE 102; RESP 16; TEMP 36.7; O2SAT 95
--- NOTE | 2022-05-08 10:34 | P.DS_ITS ---
DS: Providers Provider Date of Service: 05/08/22 Date of admission: 05/03/22 12:35 Date of discharge: 05/08/22 Primary care physician: Susan Physician Attending physician on admission: Moisés Jeffery Attending physician on discharge: Moisés Jeffery DS: Diagnosis Discharge Diagnosis (1) Schizoaffective disorder, bipolar type: Status: Acute (2) Chronic post-traumatic stress disorder (PTSD): Status: Acute DS: Medications Discharge Medications Home Medications: Previous Rx's Medication Instructions Recorded olanzapine 20 mg tablet 20 mg PO BEDTIME 30 days #30 tabs 05/07/22 Mental Status Exam Mental Status Exam Narrative: Pt is alert and oriented; behavior is cooperative, calm; dressed in casual attire, no longer wearing wrap around her head; adequate hygiene; mood is described as good and affect congruent, calm. bright; eye contact appropriate; Speech is regular rate, volume and prosody; no psychomotor agitation/retardation present; thought process is goal directed and circumstantial; Thought content is processing her struggles; no paranoid thoughts expressed; denies any SI/HI. She denies AVH.? Patients insight and judgment are fair. Data Data Completed and Pending Completed studies during hospitalization [Text1]: 05/01/22 05/01/22 05/01/22 19:49 19:49 19:49 WBC RBC Hgb Hct MCV MCH MCHC RDW Plt Count MPV Immature Gran % (Auto) Neut % (Auto) Lymph % (Auto) Summers % (Auto) Eos % (Auto) Baso % (Auto) Lymph # (Auto) Summers # (Auto) Eos # (Auto) Baso # (Auto) Abs Immat Gran (auto) Absolute Neuts (auto) Absolute Nucleated RBC Nucleated RBC % (auto) Sodium Potassium Chloride Carbon Dioxide Anion Gap BUN Creatinine Estim Creat Clear Calc Estimated GFR Random Glucose Estimat Average Glucose Hemoglobin A1c % Calcium Magnesium Total Bilirubin AST ALT Alkaline Phosphatase Total Protein Albumin Triglycerides Cholesterol LDL Cholesterol, Calc HDL Cholesterol Vitamin B12 Folate TSH Free T4 Urine Color Yellow Urine Appearance Clear Urine pH 5.5 Ur Specific Parshall <= 1.005 Urine Protein Negative Urine Glucose (UA) Negative Urine Ketones Negative Urine Blood Negative Urine Nitrite Negative Ur Leukocyte Esterase Trace H Urine RBC 0-2 Urine WBC 0-5 Ur Squamous Epith Cells 11-20 Urine Bacteria 3+ Hyaline Casts 0-2 Urine Test Urine Opiates Screen Not Detected Urine Fentanyl Screen Not Detected Ur Barbiturates Screen Not Detected Ur Phencyclidine Scrn Not Detected Ur Amphetamines Screen Not Detected U Benzodiazepines Scrn Not Detected Urine Cocaine Screen Not Detected U Marijuana (THC) Screen POSITIVE H Ethyl Alcohol COVID-19 ([facility]) Negative COVID-19 Clin Com See Note 05/01/22 05/01/22 05/01/22 19:49 19:50 19:50 WBC 10.5 RBC 4.94 Hgb 14.3 D Hct 41.4 MCV 83.8 MCH 28.9 MCHC 34.5 RDW 13.4 Plt Count 278 MPV 9.8 Immature Gran % (Auto) 0.3 Neut % (Auto) 70.4 Lymph % (Auto) 19.2 L Summers % (Auto) 7.6 Eos % (Auto) 1.9 Baso % (Auto) 0.6 Lymph # (Auto) 2.0 Summers # (Auto) 0.8 Eos # (Auto) 0.2 Baso # (Auto) 0.1 Abs Immat Gran (auto) 0.03 Absolute Neuts (auto) 7.4 Absolute Nucleated RBC 0.000 Nucleated RBC % (auto) 0.0 Sodium 142 Potassium 4.8 Chloride 106 Carbon Dioxide 24 Anion Gap 17 BUN 14 Creatinine 0.91 Estim Creat Clear Calc 66.9 Estimated GFR > 60 Random Glucose 97 Estimat Average Glucose Hemoglobin A1c % Calcium 9.9 Magnesium Total Bilirubin < 0.2 AST 32 H ALT 23 Alkaline Phosphatase 59 Total Protein 8.1 H Albumin 5.0 Triglycerides Cholesterol LDL Cholesterol, Calc HDL Cholesterol Vitamin B12 Folate TSH Free T4 Urine Color Urine Appearance Urine pH Ur Specific Parshall Urine Protein Urine Glucose (UA) Urine Ketones Urine Blood Urine Nitrite Ur Leukocyte Esterase Urine RBC Urine WBC Ur Squamous Epith Cells Urine Bacteria Hyaline Casts Urine Test NEGATIVE Urine Opiates Screen Urine Fentanyl Screen Ur Barbiturates Screen Ur Phencyclidine Scrn Ur Amphetamines Screen U Benzodiazepines Scrn Urine Cocaine Screen U Marijuana (THC) Screen Ethyl Alcohol COVID-19 ([facility]ETA) COVID-19 Clin Com 05/01/22 05/03/22 05/04/22 19:50 11:41 07:52 WBC RBC Hgb Hct MCV MCH MCHC RDW Plt Count MPV Immature Gran % (Auto) Neut % (Auto) Lymph % (Auto) Summers % (Auto) Eos % (Auto) Baso % (Auto) Lymph # (Auto) Summers # (Auto) Eos # (Auto) Baso # (Auto) Abs Immat Gran (auto) Absolute Neuts (auto) Absolute Nucleated RBC Nucleated RBC % (auto) Sodium Potassium Chloride Carbon Dioxide Anion Gap BUN Creatinine Estim Creat Clear Calc Estimated GFR Random Glucose Estimat Average Glucose 108 Hemoglobin A1c % 5.4 Calcium Magnesium Total Bilirubin AST ALT Alkaline Phosphatase Total Protein Albumin Triglycerides Cholesterol LDL Cholesterol, Calc HDL Cholesterol Vitamin B12 Folate TSH Free T4 Urine Color Urine Appearance Urine pH Ur Specific Parshall Urine Protein Urine Glucose (UA) Urine Ketones Urine Blood Urine Nitrite Ur Leukocyte Esterase Urine RBC Urine WBC Ur Squamous Epith Cells Urine Bacteria Hyaline Casts Urine Test Urine Opiates Screen Urine Fentanyl Screen Ur Barbiturates Screen Ur Phencyclidine Scrn Ur Amphetamines Screen U Benzodiazepines Scrn Urine Cocaine Screen U Marijuana (THC) Screen Ethyl Alcohol 107 COVID-19 ([facility]ETA) Negative COVID-19 Clin Com See Note 05/04/22 05/04/22 07:52 07:52 WBC RBC Hgb Hct MCV MCH MCHC RDW Plt Count MPV Immature Gran % (Auto) Neut % (Auto) Lymph % (Auto) Summers % (Auto) Eos % (Auto) Baso % (Auto) Lymph # (Auto) Summers # (Auto) Eos # (Auto) Baso # (Auto) Abs Immat Gran (auto) Absolute Neuts (auto) Absolute Nucleated RBC Nucleated RBC % (auto) Sodium Potassium Chloride Carbon Dioxide Anion Gap BUN Creatinine Estim Creat Clear Calc Estimated GFR Random Glucose Estimat Average Glucose Hemoglobin A1c % Calcium Magnesium 2.0 Total Bilirubin AST ALT Alkaline Phosphatase Total Protein Albumin Triglycerides 79 Cholesterol 187 LDL Cholesterol, Calc 114 HDL Cholesterol 58 Vitamin B12 516 Folate 14.3 TSH 1.43 Free T4 1.19 Urine Color Urine Appearance Urine pH Ur Specific Parshall Urine Protein Urine Glucose (UA) Urine Ketones Urine Blood Urine Nitrite Ur Leukocyte Esterase Urine RBC Urine WBC Ur Squamous Epith Cells Urine Bacteria Hyaline Casts Urine Test Urine Opiates Screen Urine Fentanyl Screen Ur Barbiturates Screen Ur Phencyclidine Scrn Ur Amphetamines Screen U Benzodiazepines Scrn Urine Cocaine Screen U Marijuana (THC) Screen Ethyl Alcohol COVID-19 ([facility]ETA) COVID-19 Clin Com DS: Summary Hospital Course Hospital Course: HPI: Patient is a 31-year-old female with history of Schizoaffective disorder, bipolar type with paranoid delusions, PtSD, who presents for disorganized, aggressive behavior in the community. Briefly admitted to 10/2021 and refused meds; otherwise, last psych admission about 10 years prior.? -patient has a history of intermittent psychotic illness; however up until this past year pt has mostly been able to remain stable in the community on her own, even off medications (per collateral provided by her sister Megan). -what ever got triggered that led to her last admission October 2021, has continued and even worsened and according to report, the police have been called to her house 5 times since her last discharge for aggressive and threatening behaviors towards neighbors and for destruction of property.? Patient clearly has paranoid and delusional thinking leading to such behaviors.? She denies drinking alcohol when clearly she was, revealing her unreliability and reporting.? Patient is also on the verge of eviction (according to her and crisis it seems) and homelessness will only further exacerbate her stress and symptoms.? All that said, however, patient made a tremendously brave decision and for the first time agreed that she does need help with her emotionality and agreed to start antipsychotic medication (Zyprexa). Hospital course: Although a little defensive initially, she soon calm down and throughout patient admission patient remained in good behavioral did impulse control, appropriate peers and staff and engaged in treatment, both forthcoming in 1 on 1 sessions and involved in groups. Patient was noticeably more calm and denied any side effects from Zyprexa. She was briefly started on Risperdal however this was discontinued in favor of Zyprexa which she had already been on for a few days. Patient expressing gratitude for help she is receiving on the unit and remains open to the benefits of medication.? Patient also open to getting connected with therapy group and medication provider, all very big steps for her.? Discussed patient with team who has worked with her before.? The fact that patient has been able to remain in the community, functioning on her own, with a job, for years without any medication makes it hopeful that current medication dose could prove quite stabilizing.? Given the benefits she is experiencing, patient talked about how she will remain on medication after discharge.? Discussed patient's plans for after discharge and she said she is going to stay at her father's for while.? She wants to get out of this house as soon as possible and also has plans to potentially move in with her cousin; she is also looking into job opportunities that provide room and board 05/06 remains calm, better mood, no expressed delusions or paranoid thinking and without any AVH. She is both eating and sleeping well.? Discussed medications and patient will stay on Zyprexa and switch it to bedtime.? Patient said she would like to probably discharge on Wednesday; customs entry writer offered her to stay longer and she said she is starting to look forward to getting back to her life, looking for a job and moving out of her current living situation.? While past 5 months have been marked by dysregulated behavior, patient has demonstrated improved judgment and insight by being willing to take medications and receive help.? On the unit she has remained in good behavioral and impulse control and has been completely appropriate with peers and staff.? She has also been forthcoming and engaged in 1 on 1 sessions.? Patient continues to plan on getting out of this current living situation as soon as possible which will significantly reduce stress.? Patient has stabilized.? 05/07 patient remains in good mood and reports she is feeling much more clear minded back to her regular self; upon reflection she can hardly believe some of the things that happened over the past 5 months and is grateful to be moving on, feeling much more able to process and think clearly with medication.? Patient would like to discharge tomorrow and her 3 days due.? She plans to continue taking medications.? She also plans to get out of her current housing situation and be done with this chapter in her life.? Patient is not in imminent risk for harm to self or others and her request for discharge honored. 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 11/24/21 Crisis note?[place] police (assessed) asked N and to see patient at the house as she was breaking things in the home 01/29/22 and 01/31/2022? Crisis report N and [place] police called to assess patient who was reportedly intoxicated, threatening others and said she was lady got go wearing makeup. Patient report: Patient denies this 02/14/2022? Crisis report: [place] police came to the property for behavioral outbursts; 8 windows broken in the house and patient unwilling to engage. [facility]N also present and reports patient said she was triggered by her PTSD that day; she had been verbally aggressive towards staff as well Patient report:? Patient admits that there were broken windows in her house however she said she did not break any of the.? She said that 1 of the windows has a broken weight on it and that it just shot up quickly on its own, breaking on its own. 03/28/22 Crisis report?that [place] police came to the house after neighbors called 911 saying patient was destroying things in the house with a hammer. Patient report:? Patient says that she was feeling threatened and that nobody would listen; felt emotionally triggered and had a hammer and was making dents in the door...a few holes in the quispe. ? She explains when she feels out of control she sometimes gets out of control patient said she talked to Rony Fonseca and she agreed to stop damaging the house and instead take a walk when she is feeling frustrated. 04/10/2022 Crisis note:? [place] police called to the house for behavioral issues; no details provided Time spent discussing smoking cessation with patient: 3 to 10 minutes Status at Discharge Functional status at discharge: independent ambulation Overall status at discharge: patient is back to baseline Time Spent with Patient Time attestation: Total time spent providing and/or coordinating discharge services: Time spent: Less than 30 minutes Discharge Plan Discharge Anticipated Discharge Date/Time: 05/08/22 13:00 Patient Disposition: Home, Self-Care Discharge Diagnosis: schizoaffective disorder, bipolar type Referrals: Therapy: Haleigh Nash ([facility]) [Other] - 05/14/22 3:00 pm (*In person at the office*) Psych Prescriber: Naima Yeboah ([facility]) [Other] - 06/03/22 11:00 am (Telehealth ) Psych Prescriber: Naima Yeboah ([facility]) [Other] - 07/02/22 11:00 am (Telehealth ) Physician,None [Primary Care Provider] - 1 Week (PT HAS NOT YET CHOSEN A PCP BECAUSE SHE REPORTS SHE WILL BE MOVING SOON AND UNSURE WHERE TO.) Discharge Medications: New olanzapine 20 mg tablet 20 mg PO BEDTIME 30 Days Qty: 30 1RF Discharge Orders: Discharge Order (Routine); Ordered 05/08/22 Ordered By: Moisés Jeffery Diet: Regular diet Activity on Discharge: As tolerated Stand Alone Forms: Patient Portal Discharge page, Community Support Care Plan Goals: Maintain mood and safe behaviors Take medications as prescribed Continue to pursue sobriety Practice coping skills Continue with outpatient providers and reach out to them as needed Health Concerns: Mood stability and behaviors Plan of Treatment: Follow up with your Psychiatric provider and other outpatient providers regarding above concerns Take medications as prescribed Assessment: Risk assessment at time of discharge:? Patient was interviewed prior to discharge and found to be fully oriented and without any SI or HI. Patient has insight and demonstrates good judgment in terms of wanting to pursue treatment. Patient is not in imminent risk of harm to self or others and has a safety plan that includes presenting to the closest ER or calling 911 if feeling unsafe.? Patient has been observed closely by nursing and unit staff throughout admission; patient has not engaged in any behaviors that suggest dangerousness to self or others and has demonstrated appropriate behaviors and impulse control Discharge Date/Time: 05/08/22 14:23
== END 2022-05-08 14:23 | disposition home or self-care (01) | DRG 750 ==
LOC: HO.ED 05-03 12:26 → HO.PM5 05-03 12:46
PROVIDERS: Clinical Nurse Specialist Psychiatric/Mental Health, Adult; Admitting Provider Psychiatry & Neurology Psychiatry; Emergency Provider Emergency Medicine; Visit Provider Psychiatry & Neurology Psychiatry
DX: F25.0 Schizoaffective disorder, bipolar type (principal); F17.210 Nicotine dependence, cigarettes, uncomplicated; F43.12 Post-traumatic stress disorder, chronic; Z23 Encounter for immunization; Z20.822 Contact with and (suspected) exposure to COVID-19; Z71.6 Tobacco abuse counseling; Z79.899 Other long term (current) drug therapy
CPT/HCPCS: 36415; 80053; 80061; 80307; 81001; 81003; 81025; 82077; 82607; 82746; 83036; 83735; 84439; 84443; 85025; 87635; 90686; 99285